=== PATIENT | male | born 1995 | race Caucasian/White ===

== ENCOUNTER 2017-03-08 19:56 | Emergency (ER) | payer MEDICAID ==
[~2017-03-08] VITALS: Ht 182.9 cm; Wt 81.6 kg
--- NOTE | 2017-03-08 20:00 | NUR ---
Patient to ER bed 07 to gown for evaluation. Side rails up.
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
[2017-03-08 20:07] VITALS: BP_SYST 154
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
--- NOTE | 2017-03-08 20:44 | NUR ---
Dr Hidalgo at bedside examining patient
--- NOTE | 2017-03-08 21:02 | NUR ---
Patient transported to radiology via Wheelchair, accompanied by zoology technical officer
[2017-03-08 22:38] VITALS: BP_SYST 132
--- NOTE | 2017-03-08 22:38 | NUR ---
Patient given written and verbal discharge instructions and verbalizes understanding. ER MD discussed with patient the results and treatment provided. Patient in stable condition. ID arm band removed. No RX given. Patient educated on pain management and to follow up with PMD in 2- 3 days. Pain Scale 0/10 Opportunity for questions provided and answered.
== END 2017-03-08 22:38 | disposition home or self-care (01) ==
LOC: SED 19:56
DX: S02.2XXA Fracture of nasal bones, initial encounter for closed fracture (principal); S01.81XA Laceration without foreign body of other part of head, initial encounter; Y04.0XXA Assault by unarmed brawl or fight, initial encounter; Y93.89 Activity, other specified; Y92.89 Other specified places as the place of occurrence of the external cause; Y99.8 Other external cause status
CPT/HCPCS: 70450-TC; 70486-TC; 71010; 72125-TC; 73564; 99284

== ENCOUNTER 2018-06-18 20:56 | Emergency (ER) | payer MEDICAID, OTHER ==
[~2018-06-18] VITALS: Ht 182.9 cm; Wt 90.7 kg
[2018-06-18 21:13] VITALS: BP_SYST 123
[2018-06-18 21:53] LABS: BILIRUBIN,URINE NEGATIVE (NEGATIVE); CLARITY/URINE SL CLOUDY (CLEAR); COLOR,URINE YELLOW (YELLOW); GLUCOSE,URINE NEGATIVE (NEGATIVE); KETONES,URINE NEGATIVE (NEGATIVE); LEUKOCYTE ESTERASE ,URINE 1+ (NEGATIVE); NITRITE, URINE NEGATIVE (NEGATIVE); PH,URINE 6.5 (5.0-8.0); PROTEIN URINE NEGATIVE (NEGATIVE); UROBILINOGEN,URINE 0.2 (0.2-1.0)
[2018-06-18] MEDS ORDERED: AZITHROMYCIN 250 MG TABLET PO ONE (22:15)
[2018-06-18] MEDS ORDERED: cefTRIAXone 250 MG VIAL IM ONE (22:15)
[2018-06-18 22:25] LABS: BLOOD, URINE TRACE (NEGATIVE)
[2018-06-18] MEDS ORDERED: LIDOCAINE 1% 10 MG/ML, 20 ML MDV INJ ONE (22:30)
[2018-06-18 22:52] LABS: BACTERIA,URINE FEW /HPF (None Seen); WBC,URINE 50-80 /HPF (0-3)
[2018-06-18 22:53] LABS: MUCUS,URINE None Seen /LPF (None Seen)
[2018-06-18 23:05] VITALS: BP_SYST 120
[2018-06-21 18:39] LABS: CHLAMYDIA TRACHOMATIS NAA Negative (Negative)
== END 2018-06-18 23:05 | disposition home or self-care (01) ==
LOC: SED 20:56
DX: N34.2 Other urethritis (principal)
CPT/HCPCS: 81000; 87086; 87491; 87591; 96372; 99283; J0696; Q0144

== ENCOUNTER 2018-08-07 18:38 | Emergency (ER) | payer OTHER ==
[~2018-08-07] VITALS: Ht 182.9 cm; Wt 90.7 kg
[2018-08-07 18:42] VITALS: BP_SYST 135
[2018-08-07 19:30] VITALS: BP_SYST 132
== END 2018-08-07 19:30 ==
LOC: SED 18:38
DX: M25.562 Pain in left knee (principal)
CPT/HCPCS: 99283

== ENCOUNTER 2020-06-26 02:52 | Emergency (ER) | payer MEDICAID, OTHER ==
[~2020-06-26] VITALS: Ht 182.9 cm; Wt 90.7 kg
[2020-06-26] MEDS ORDERED: LIDOCAINE 2%, 20 ML MDV INJ ONE (03:30)
[2020-06-26 04:06] VITALS: BP_SYST 136
[2020-06-26] MEDS ORDERED: LIDOCAINE 1%, 20 ML MDV 20 ML ONE (04:17)
[2020-06-26] MEDS: DIPH-TET-PERTUS Vaccine 0.5 ML VIAL (ADACEL) I.M. ONE (04:35)
[2020-06-26] MEDS: HYDROcodone/ACETAMIN 5-325 MG TAB (NORCO/ VICODIN) PO ONE (04:36)
[2020-06-26] MEDS: SULFAMETHOXAZOLE/TRIMETHOPR DS 1 TABLET PO ONE (04:36)
[2020-06-26 04:45] VITALS: BP_SYST 132
== END 2020-06-26 04:45 | disposition home or self-care (01) ==
LOC: SED 02:52
DX: L03.012 Cellulitis of left finger (principal)
CPT/HCPCS: 10060; 90715; 99283; J2001

== ENCOUNTER 2020-08-22 01:43 | Emergency (ER) | payer MEDICAID ==
[~2020-08-22] VITALS: Ht 182.9 cm; Wt 90.7 kg
[2020-08-22 01:50] VITALS: BP_SYST 159
[2020-08-22] MEDS ORDERED: cefTRIAXone 1 GM VIAL IM ONE (02:15)
[2020-08-22] MEDS ORDERED: DOXYCYCLINE HYCLATE 100 MG CAPSULE PO ONE (02:15)
[2020-08-22 02:17] LABS: BILIRUBIN,URINE NEGATIVE (NEGATIVE); CLARITY/URINE CLEAR (CLEAR); COLOR,URINE YELLOW (YELLOW); GLUCOSE,URINE NEGATIVE (NEGATIVE); KETONES,URINE TRACE (NEGATIVE); LEUKOCYTE ESTERASE ,URINE 1+ (NEGATIVE); NITRITE, URINE NEGATIVE (NEGATIVE); PROTEIN URINE 2+ (NEGATIVE); UROBILINOGEN,URINE 0.2 (0.2-1.0)
[2020-08-22 02:27] LABS: BLOOD, URINE TRACE (NEGATIVE)
[2020-08-22 02:31] LABS: RBC,URINE 20-50 /HPF (0-3); WBC,URINE 50-80 /HPF (0-3)
[2020-08-22 02:32] LABS: BACTERIA,URINE MODERATE /HPF (None Seen)
[2020-08-22 02:39] VITALS: BP_SYST 148
== END 2020-08-22 02:39 | disposition home or self-care (01) ==
LOC: SED 01:43
DX: N39.0 Urinary tract infection, site not specified (principal); R36.9 Urethral discharge, unspecified
CPT/HCPCS: 81000; 87086; 87491; 87591; 96372; 99283; J0696

== ENCOUNTER 2020-10-09 02:16 | Emergency (ER) | payer MEDICAID ==
[~2020-10-09] VITALS: Ht 182.9 cm; Wt 95.3 kg
[2020-10-09 02:24] VITALS: BP_SYST 170
[2020-10-09] MEDS ORDERED: HYDR-3927 PO (02:37)
[2020-10-09] MEDS ORDERED: KETOROLAC TROMETHAMINE 30 MG VIAL IVP ONE (02:45)
[2020-10-09] MEDS ORDERED: ONDANSETRON HCL 4 MG/2 ML VIAL IVP ONE (02:45)
[2020-10-09] MEDS ORDERED: VANCOMYCIN HCL 1 MG in D5W 250 ML IV ONE (02:45)
[2020-10-09] MEDS ORDERED: NACL 0.9% 1,000 ML IV SCH (02:45)
[2020-10-09] MEDS ORDERED: PIPERACILLIN/TAZO 4.5 GM in NS 100 ML IV ONE (02:45)
[2020-10-09] MEDS ORDERED: MORPHINE 4 MG INJ. 4 MG/ML VIAL IVP ONE (02:45)
[2020-10-09] MEDS ORDERED: VANCOMYCIN HCL 1000 MG/VIAL IV ONE (02:49)
[2020-10-09] MEDS ORDERED: PIPERACILLIN/TAZOBACTAM 4.5 GM/VIAL (ZOSYN) IV ONE (02:50)
[2020-10-09 03:28] LABS: BASOPHILS # (AUTO) 0.1 K/uL (0.0-0.2); BASOPHILS % (AUTO) 0.8 % (0.0-2.0); EOSINOPHILS # (AUTO) 0.2 K/uL (0.0-0.4); EOSINOPHILS % (AUTO) 2.4 % (0.0-4.0); HEMATOCRIT 28.9 % (36-54); HEMOGLOBIN 9.8 g/dL (14.0-18.0); LYMPHOCYTES # (AUTO) 1.6 K/uL (1.0-5.5); LYMPHOCYTES % (AUTO) 20.5 % (20.5-51.5); MEAN CORPUSCULAR HEMOGLOBIN 30 pg (27-31); MEAN CORPUSCULAR HGB CONC 34 % (32-36); MEAN CORPUSCULAR VOLUME 88 fL (79.0-98.0); MONOCYTES # (AUTO) 0.4 K/uL (0.0-1.0); MONOCYTES % (AUTO) 5.2 % (1.7-9.3); NEUTROPHILS # (AUTO) 5.7 K/uL (1.8-7.7); NEUTROPHILS % (AUTO) 71.1 % (40.0-70.0); PLATELET COUNT (AUTO) 432 K/uL (130-430); RED BLOOD CELL COUNT(AUTO) 3.28 MIL/uL (4.2-6.2); RED CELL DISTRIBUTION WIDTH 14.8 % (9.0-15.0)
[2020-10-09 03:36] LABS: BARBITURATE, URINE NEGATIVE (NEG <=200); BENZODIAZEPINE, URINE NEGATIVE (NEG <=150); CANNABINOID, URINE NEGATIVE (NEG <=50); COCAINE, URINE NEGATIVE (NEG <=150); METHAMPHETAMINES SCREEN,URINE POSITIVE (NEG <=500); OPIATE, URINE POSITIVE (NEG <=100); PHENCYCLIDINE SCREEN,URINE NEGATIVE (NEG <=25); UR TRICYCLIC ANTIDEPRESSANTS NEGATIVE (NEG <=300); URINE AMPHETAMINE POSITIVE (NEG <=500); URINE METHADONE NEGATIVE (NEG <=200); URINE OXYCODONE SCREEN NEGATIVE (NEG <=100); URINE PROPOXYPHENE SCREEN NEGATIVE (NEG <=300)
[2020-10-09 03:41] LABS: CALCIUM 8.8 mg/dL (8.4-11.0); CREATININE 0.95 mg/dL (0.55-1.30); POTASSIUM 3.9 mmol/L (3.5-5.1)
[2020-10-09 03:58] LABS: ALBUMIN 3.2 g/dL (3.4-4.8); TOTAL BILIRUBIN 1.6 mg/dL (0.0-1.0)
[2020-10-09] MEDS ORDERED: CLIN300C12 PO (06:22)
[2020-10-09] MEDS ORDERED: IBUP-1971 PO (06:23)
[2020-10-09 06:35] VITALS: BP_SYST 170
== END 2020-10-09 06:35 | disposition home or self-care (01) ==
LOC: SED 02:16
DX: S71.132A Puncture wound without foreign body, left thigh, initial encounter (principal); L03.116 Cellulitis of left lower limb; F19.10 Other psychoactive substance abuse, uncomplicated; F17.200 Nicotine dependence, unspecified, uncomplicated; F11.90 Opioid use, unspecified, uncomplicated; F15.90 Other stimulant use, unspecified, uncomplicated; Z79.899 Other long term (current) drug therapy; X58.XXXA Exposure to other specified factors, initial encounter; Y93.A6 Activity, grass drills; Y92.89 Other specified places as the place of occurrence of the external cause; Y99.8 Other external cause status
CPT/HCPCS: 36415; 80053; 80307; 83605; 85025; 87040; 93971; 96365; 96368; 96375; 99284; J1885; J2270; J2405; J2543; J3370; J7030

== ENCOUNTER 2020-11-25 18:44 | Emergency (ER) | payer MEDICAID, SELFPAY ==
[~2020-11-25] VITALS: Ht 180.3 cm; Wt 81.6 kg
[~2020-11-25 18:44] MED LIST: CLIN300C12 PO; HYDR-3927 PO; IBUP-1971 PO
[2020-11-25 19:20] VITALS: BP_SYST 118
[2020-11-25] MEDS: PIPERACILLIN/TAZO 3.38 GM in D5W 50 ML IV ONE (21:20)
[2020-11-25] MEDS ORDERED: PIPERACILLIN/TAZOBACTAM 3.375 GM/VIAL (ZOSYN) IV ONE (21:20)
[2020-11-25 21:33] LABS: PROTHROMBIN TIME 10.5 SECS (9.5-12.5)
[2020-11-25 21:35] LABS: ALBUMIN 3.3 g/dL (3.4-4.8); CALCIUM 9.1 mg/dL (8.4-11.0); CREATININE 1.08 mg/dL (0.55-1.30); POTASSIUM 3.6 mmol/L (3.5-5.1); TOTAL BILIRUBIN 0.8 mg/dL (0.0-1.0)
[2020-11-25 21:38] LABS: BASOPHILS # (AUTO) 0.1 K/uL (0.0-0.2); BASOPHILS % (AUTO) 0.5 % (0.0-2.0); EOSINOPHILS % (AUTO) 0.2 % (0.0-4.0); HEMOGLOBIN 14.3 g/dL (14.0-18.0); LYMPHOCYTES # (AUTO) 1.5 K/uL (1.0-5.5); MEAN CORPUSCULAR HEMOGLOBIN 27 pg (27-31); MEAN CORPUSCULAR HGB CONC 33 % (32-36); MEAN CORPUSCULAR VOLUME 82 fL (79.0-98.0); MONOCYTES # (AUTO) 0.7 K/uL (0.0-1.0); MONOCYTES % (AUTO) 5.6 % (1.7-9.3); NEUTROPHILS # (AUTO) 9.9 K/uL (1.8-7.7); NEUTROPHILS % (AUTO) 81.7 % (40.0-70.0); PLATELET COUNT (AUTO) 282 K/uL (130-430); RED BLOOD CELL COUNT(AUTO) 5.22 MIL/uL (4.2-6.2); RED CELL DISTRIBUTION WIDTH 14.3 % (9.0-15.0); WHITE BLOOD COUNT (AUTO) 12.1 K/uL (4.8-10.8)
[2020-11-25] MEDS: NS 1000 ML IV.SOLN IV ONE (22:03)
[2020-11-25] MEDS ORDERED: VANCOMYCIN HCL 1000 MG/VIAL IV ONE (22:08)
[2020-11-25] MEDS: VANCOMYCIN HCL 1,000 MG in D5W 250 ML IV ONE (22:13)
[2020-11-25 23:43] VITALS: BP_SYST 111
[2020-11-26] MEDS ORDERED: NAPR-1172 PO (19:02)
[2020-11-26] MEDS ORDERED: CEPH500C2 PO (19:02)
== END 2020-11-25 23:43 | disposition left against medical advice (07) ==
LOC: SED 18:44
DX: L03.116 Cellulitis of left lower limb (principal); Z20.822 Contact with and (suspected) exposure to COVID-19; Z79.899 Other long term (current) drug therapy
CPT/HCPCS: 36415; 71045; 80053; 83605; 84484; 85025; 85610; 85730; 87040; 87426; 93005; 93971; 96365; 96367; 99285; J2543; J3370

== ENCOUNTER 2020-11-26 17:43 | Emergency (ER) | payer MEDICAID ==
[~2020-11-26] VITALS: Ht 182.9 cm; Wt 88.5 kg
[2020-11-26 17:45] VITALS: BP_SYST 132
[2020-11-26] MEDS ORDERED: CEPH500C2 PO (19:02)
[2020-11-26] MEDS ORDERED: NAPR-1172 PO (19:02)
[2020-11-26] MEDS ORDERED: cefTRIAXone 1 GM in LIDOCAINE 1%, 20 ML MDV 2.1 ML IM ONE (19:15)
[2020-11-26 19:17] VITALS: BP_SYST 132
== END 2020-11-26 19:16 | disposition home or self-care (01) ==
LOC: SED 17:43
DX: L03.116 Cellulitis of left lower limb (principal); F15.10 Other stimulant abuse, uncomplicated; M79.662 Pain in left lower leg; Z79.899 Other long term (current) drug therapy
CPT/HCPCS: 96372; 99283; J0696; J2001

== ENCOUNTER 2021-05-09 19:28 | Emergency (ER) | payer MEDICAID ==
[~2021-05-09] VITALS: Ht 182.9 cm; Wt 90.7 kg
[~2021-05-09 19:28] MED LIST changes: +CEPH-548 PO; +NAPR-1172 PO
[2021-05-09 20:05] VITALS: BP_SYST 164
[2021-05-09] MEDS ORDERED: LIDOCAINE/EPI 1% 1:100000 20 ML VIAL INJ ONE (20:15)
[2021-05-09] MEDS ORDERED: DIPH-TET-PERTUS Vaccine 0.5 ML VIAL (ADACEL) I.M. ONE (20:15)
[2021-05-09] MEDS ORDERED: LIDOCAINE 1% 10 MG/ML, 20 ML MDV INJ ONE (20:15)
[2021-05-09] MEDS ORDERED: BACITRACIN 1 GM OINT TP ONE (20:15)
[2021-05-09] MEDS ORDERED: CLIN300C12 PO (20:52)
[2021-05-09 21:15] VITALS: BP_SYST 146
== END 2021-05-09 21:15 | disposition home or self-care (01) ==
LOC: SED 19:28
DX: L02.414 Cutaneous abscess of left upper limb (principal); Z79.899 Other long term (current) drug therapy
CPT/HCPCS: 99283

== ENCOUNTER 2023-11-18 01:44 | Emergency (ER) | payer SELFPAY ==
[~2023-11-18] VITALS: Ht 182.9 cm; Wt 99.8 kg
[~2023-11-18 01:44] MED LIST changes: +CLIN-142 PO; -CLIN300C12 PO
[2023-11-18 02:06] VITALS: BP_SYST 141; PULSE 100; RESP 16; TEMP 98.1; O2SAT 96
[2023-11-18] MEDS: cefTRIAXone 1 GM in LIDOCAINE 1%, 20 ML MDV 2.1 ML IM ONE (02:48)
[2023-11-18] MEDS ORDERED: CEPH-548 PO (03:12)
== END 2023-11-18 03:14 | disposition home or self-care (01) ==
LOC: SED 01:44
DX: L03.221 Cellulitis of neck (principal); F19.10 Other psychoactive substance abuse, uncomplicated; F17.210 Nicotine dependence, cigarettes, uncomplicated; Z79.899 Other long term (current) drug therapy; Z79.2 Long term (current) use of antibiotics
CPT/HCPCS: 99283; 10060; 96372; J0696; J2001